=== PATIENT | female | born 1935 | race Caucasian/White ===

== ENCOUNTER 2017-02-07 18:39 | Inpatient (IN) | payer MEDICARE, BC, OTHER ==
[~2017-02-07] VITALS: Ht 147.3 cm; Wt 62.5 kg
[~2017-02-07 18:39] MED LIST: ADULT LOW DOSE81 MG PO; CLARITIN10 MG PO; CLOPIDOGREL75 MG PO; COZAAR25 MG PO; CRESTOR20 MG PO; DEXILANT60 MG PO; FOLIC ACID1 MG PO; HYDROXYZINE HCL25 MG PO; LIPITOR80 MG PO; METFORMIN HCL500 M2 PO; METOPROLOL SUCC50 MG PO; METOPROLOL TART50 MG PO; MUCINEX600 MG PO; NEURONTIN100 MG PO; NORCO 5-325 TA1 EACH PO; NORCO 7.5-3251 EACH PO; SERTRALINE HCL50 MG PO; TOPROL XL50 MG PO; TORSEMIDE20 MG PO; TYLENOL EXTRA500 MG PO; ULTRA-LIGHT RO1 EACH MISC; VITAMIN D250000 UNIT PO
[2017-02-07] MEDS ORDERED: GABAPENTIN100 MG PO (19:14)
[2017-02-07] MEDS ORDERED: HYDROXYZINE HCL25 MG PO (19:14)
--- NOTE | 2017-02-07 22:06 | EKG ---
[facility] [address] [place] [address] Signed Sinus rhythm with premature atrial complexes Left bundle branch block Abnormal ECG No previous ECGs available Confirmed by CHELSEA GARAY MD ([id number]) on 02/07/2017 10:06:19 PM Electronically Signed By: CHELSEA GARAY MD 02/07/17 2206 PATIENT NAME: MERISSA VARELA Electrocardiogram DATE OF : 31 PHYSICIAN: CHELSEA GARAY MD REPORT #: [id number] REPORT IS CONFIDENTIAL AND NOT TO BE RELEASED WITHOUT AUTHORIZATION
--- NOTE | 2017-02-07 22:25 | NUR ---
ADMIT PT AT 2120 TO CCU PER STRETCHER FROM ED. PT STATES SHE IS WEAK AT THIS TIME AND PT UNABLE TO MOVE SELF. IS SL HARD OF HEARING. FAMILY EXPRESSED CONCERN ABOUT PT'S MEDS AND THAT SHE IS SELF MEDICATING AT HOME. REQUESTING THAT STAFF GO OVER MEDS WITH PCP AND PHARMACY. INFORMED THAT PHARMACY STAFF WILL BE DOING THAT. ALSO DISCUSSED POSS NEED FOR SOMEONE TO HELP MANAGE PTS MEDS AT HOME. PT GIVEN WATER. BOLUS'S INFUSING. PT STATES SHE VOIDED AT HOME PRIOR TO COMINGIN TO HOSPITAL.
--- NOTE | 2017-02-07 23:19 | NUR ---
LAB DRAW FOR REPEAT LACTIC ACID DONE. 16F BABCOCK CATH INSERTED WITHOUT PROBLEM, RETURN CL YEL URINE. PT EATING CRACKERS AND TAKING ICE CHIPS. PT PREFERS ICE CHIPS AT THIS TIME.
--- NOTE | 2017-02-07 23:48 | NUR ---
DR GARAY CALLED RE LABS, IVF INCREASED TO 100ML/HR. PT RESTFUL.
--- NOTE | 2017-02-08 02:58 | NUR ---
PT AWAKE REQUESTING WARM WASH CLOTH TO WASH FACE.REQUESING 02 OFF 02 BURNING NOSE, CHANGED TO OXYMASK. PT DID TAKE 02 OFF WHILE WASHING FACE AND SATS DECREASED TO 84%, SATS RETURNED TO 90'S WHEN [address] GARAY CALLED RE T 101.6. ORDER RECIEVED FOR BLOOD CULTURES. LAB NOTIFIED.
--- NOTE | 2017-02-08 04:13 | NUR ---
TYLENOL GIVEN AFTER BLOOD CULTURES DRAWN PER DR GARAY'S INSTRUCTION.
--- NOTE | 2017-02-08 05:14 | NUR ---
PT STATES FEELING WARM, HELPED TO REMOVED COVERS. HELPED TO REPOSITION.
--- NOTE | 2017-02-08 08:00 | NUR ---
ASSESSMENT DONE. TALKED WITH PATIENT ABOUT PLAN OF CARE. THIS WILL NEED TO BE REINFORCED. PATIENT IS SOMEWHAT FORGETFUL. IVF/BABCOCK CATH PATENT.
--- NOTE | 2017-02-08 08:20 | NUR ---
DR. GARAY HERE TO SEE PATIENT. ORDERS RECIEVED TO BOLUS WITH REMAINING IVF THEN RATE TO 125 ML/HR.
--- NOTE | 2017-02-08 08:45 | NUR ---
BOLUS 332 ML INFUSED. IVF NOW INFUSING AT 125 ML/HR. C/O FEELING COLD. STATES SOME HOW I FEEL DIFFERENT. WARM BLANKET GIVEN.
--- NOTE | 2017-02-08 09:10 | NUR ---
TOOK BREAKFAST POOR. DENIES NAUSEA.
--- NOTE | 2017-02-08 09:10 | NUR ---
NORCO GIVEN FOR C/O MID CHEST DISCOMFORT. WARM BLANKETS GIVEN FOR COMFORT.
--- NOTE | 2017-02-08 10:30 | NUR ---
FAMILY MEMBERS ARE IN ROOM. PATIENT IS W/O C/O.
--- NOTE | 2017-02-08 12:00 | NUR ---
ASSESSMENT DONE. LUNCH ORDERED. FAMILY HERE.
--- NOTE | 2017-02-08 16:15 | NUR ---
ASSESSMENT DONE. NO CHANGES.
--- NOTE | 2017-02-08 16:30 | NUR ---
BABCOCK CATH DC'D PER ORDERS.
--- NOTE | 2017-02-08 19:01 | NUR ---
REPORT GIVEN TO NEXT SHIFT. RESTFUL
--- NOTE | 2017-02-08 20:23 | NUR ---
PT STATES SHE IS READY FOR BED. HAD PT UP TO BSC TO TRY TO VOID. PT VOIDED 10ML. STATES SHE IS "SHAKY" FROM "NERVES" AND IS HAVING DIFFICULTY RELAXING TO VOID. BLADDER SCANNED FOR 329ML. PT REPORTS SHE TAKES HYDROXIZINE FOR HER NERVES AT HOME WHEN ASKED. PT ALSO ASKING FOR LAXATIVE OR STOOL SOFTENER. DR GARAY CALLED AND ORDERS RECIEVED. WHILE UP TO COMMODE PT WAS NOT SOB BUT SATS DID DEC TO UPPER 80'S. PT REQUIRED ASSISTANCE WEAK AND TIRED. REPORTS SHE IS VERY TIRED. HS CARE DONE.
--- NOTE | 2017-02-08 23:30 | NUR ---
PT UP TO BSC TO VOID. HAS URGENCY AND STARTED TO VOID SHORTLY AFTER STANDING. WAS SOB AND HR UP TO 124. SATS DEC TO 80'S WHEN BACK TO BED 02 INCREASED TO 4 L TO HELP PT RECOVER. TEMP 100.4 PT GIVEN 500MG TYLENOL PO. PT DOES C/O FEELING COLD. COVERED WITH BLANKETS BUT NOT GIVEN ADDITIONAL WARM BLANKETS AND EXPLAINED TO PT WHY IE TEMP INCREASING. PT EXPRESSED SHE UNDERSTOOD.
--- NOTE | 2017-02-08 23:33 | NUR ---
HR NOW 98 AND 02 BACK TO 3L SATS MID 90'S.
--- NOTE | 2017-02-09 01:18 | NUR ---
PT CALLED, STATES FEELS NEED TO VOID. ALSO STATES SHE DOESN'T FEE GOOD. REQUIRED 2 PERSON ASSIST TO BSC. VOIDED CL YEL URINE. MOVES WITH DIFFICULTY BUT LESS SOB. BACK TO BED AND ASSISTED UP IN BED. CONT TO STATE SHE DOESN'T FEEL GOOD, VAGUE ABOUT SYMPTOMS BUT DOES HAVE SOME CHEST DISCOMFORT BALA WITH BREATH. T 101.2 GIV[address] GARAY CALLED RE TEMP.
--- NOTE | 2017-02-09 01:55 | NUR ---
PTR AWAKENED BY IV PUIMP. STATES IS FEELING BETTER AND IS STARTING TO SWEAT.02 OFF TO WASH FACE AND SATS DEC TO 82, O2 BACK ON, SASTS 93%.
--- NOTE | 2017-02-09 03:14 | NUR ---
IS SLEEPING. HR 98-104 HAS FREQ PAC'S. SATS 95-97%.
--- NOTE | 2017-02-09 05:15 | NUR ---
IN TO SEE PT, SHE IS AWAKE. UP TO BSC TO VOID. IS STRONGER THAN EARLIER BUT STILL REQUIRING 1 PERSON ASSIST UP AND 2 PERSON ASSIST BACKT TO BED. LESS SOB THOUGH SATS STILL DEC TO 85 WITH EXERTION. DOES RECOVER FASTER THAN EARLIER. TAKING ICE CHIPS.
--- NOTE | 2017-02-09 06:34 | NUR ---
SLEEPING AT THIS TIME.
--- NOTE | 2017-02-09 06:57 | NUR ---
UP TO BSC. STATES CHEST FEELS TIGHT. EXPLAINED THAT THAT WAS A SYMPTOM OF PNEUMONIA.
--- NOTE | 2017-02-09 08:00 | NUR ---
RESTFUL. NO DISTRESS NOTED.
--- NOTE | 2017-02-09 09:00 | NUR ---
UP TO COMMODE WITH ASSIST. UNABLE TO VOID. SPONGE BATH GIVEN. TRANSFERRED TO CHAIR.
--- NOTE | 2017-02-09 09:15 | NUR ---
DR. GARAY PHONED IN AND UPDATED ON PATIENT. IVF DC'D. ENC TO INCREASE PO INTAKE.
--- NOTE | 2017-02-09 10:03 | NUR ---
REMAINS IN CHAIR. DENIES PROBLEMS.
--- NOTE | 2017-02-09 11:18 | NUR ---
ECHO BEING DONE AT BEDSIDE.
--- NOTE | 2017-02-09 13:00 | NUR ---
REPORT TO MEDICAL FLOOR.
--- NOTE | 2017-02-09 13:15 | NUR ---
IS SOMEWHAT ANXIOUS, VISTERIL 25 MG PO GIVEN.
--- NOTE | 2017-02-09 13:29 | NUR ---
PT SITTING IN CHAIR EATING BREAKFAST. SHE IS BY NATURE QUIET, SOMEWHAT SLOW TO RESPOND AND A LITTLE NEGATIVE. SHE RECOGNIZED ME, SEEMED TO PERK UP SOME AND WE HAD A PLEASANT CONVERSATION. SHE MISSES HER CATS, CONCERNED ABOUT THEIR WELL BEING. REQUESTED PRAYER, WILL CONTINUE TO FOLLOW
--- NOTE | 2017-02-09 13:30 | NUR ---
BREONNA PATRICK HERE TO TAKE WITH PATIENT ABOUT HOME MEDICATIONS.
--- NOTE | 2017-02-09 14:20 | NUR ---
PT TRANSFERED FROM CCU TO ROOM 108 VIA RECLINER, ACCOMPANIED BY DAUGHTER AND OTILIO PAT. PT AWAKE, ALERT, ORIENTED X 4. PT ON 3L O2 VIA NC, OXYGEN SATURATION 90%.
--- NOTE | 2017-02-09 14:37 | NUR ---
PT C/O NAUSEA, GAVE ZOFRAN 4 MG IV PRN. PT DENIED OTHER NEEDS.
--- NOTE | 2017-02-09 14:47 | NUR ---
NURSE IN ROOM
--- NOTE | 2017-02-09 14:54 | NUR ---
PT TRANSFERED FROM RECLINER TO BED WITH FWW WITH 2 PERSON ASSIST. STAND PIVOT TRANSFER. PT DESATURATED FROM 90% TO 82%. ONCE IN BED, PT ENCOUARGED TO TAKE DEEP BREATHS IN THROUGH NOSE, OUT MOUTH, AND PT'S OXYGEN SATURATION LEVEL INCREASED TO 90% AFTER APROXIMATELY [address] GARAY OF ABOVE NOTED, AND THAT THIS RN PLACED PT ON CONTINOUS PULSE OXIMETERY. RECIEVED VORB FOR CONTINUOUS PULSE OX FOR THIS PT.
--- NOTE | 2017-02-09 18:39 | NUR ---
PT IN BED, AWAKE, DROWSY. PROVIDED PT WITH WARM WATER PER HER REQUEST. PT DID NOT WANT DINNER, REFUSED ALL OFFERED FOODS, STATED THAT HER DAUGHTER WILL BRING IN SOME SPLIT PEA SOUP LATER. ENCOURAGED PT TO DRINK MORE FLUIDS. PT STATED THAT SHE WILL TRY.
--- NOTE | 2017-02-09 18:49 | NUR ---
PT TRANSFERED FROM CCU TO FLOOR, TO ROOM 108 THIS AFTERNOON. PT'S OXYGEN SATURATION LEVEL DROPS TO LOW 80s ON 3L O2 VIA NC WITH ANY TRANSFER, AND PT TAKES 2-3 MINUTES TO RECOVER AFTER TRANSFERS. HAS CONTINOUS PULSE OX ON. PT USED INSENTIVE SPIROMETER AND ACAPELLA APROPRIATELY. IS A 2 PERSON ASSIST TRANSFER WITH PERSONAL WALKER. PT HAS VERY POOR APETITE, REFUSED DINNER, REFUSED ENSURE, REFUSED ANY OTHER PO INTAKE, EXCEPT SIPS OF WATER.
--- NOTE | 2017-02-09 20:46 | NUR ---
PT UP TO BSC,
--- NOTE | 2017-02-09 21:48 | NUR ---
MEDICATED WITH ZOFRAN,. C/O UPSET STOMACH
--- NOTE | 2017-02-09 23:01 | NUR ---
PT UP TO BSC WITH 2 PERSON ASSIST. O2 DESATS PREVIOUSLY NOTED BY THIS RN. VOIDED, BACK TO BED. TOTAL AMOUNT OF TIME SPENT WITH PT AT THIS TIME WAS 25 MINUTES TO HELP DECREASE PTS ANXIETY. EFFECTIVE
--- NOTE | 2017-02-09 23:45 | NUR ---
2 PERSON ASSISTED PATIENT TO USE THE COMMODE. USED OXIMASK IN 10 LITER WHEN UP AND 4 LITER IN NASAL CANNULA WHEN IN BED.
--- NOTE | 2017-02-10 01:37 | NUR ---
Pt up to bsc. voided. Requires 2 person assist. O2 desats just as before. Current O2 3L/nc after getting in bed. denies SOB. sats 93%, p89, r22 at this time. Time spent inroom with pt 20 minutes, to help pt decrease anxiety when up. tolerated well,
--- NOTE | 2017-02-10 01:41 | NUR ---
t 99.7, CDB and IS done. Covers removed. will recheck temp in 1hr.
--- NOTE | 2017-02-10 03:43 | NUR ---
Resting, no c/o pain. O2 in place
--- NOTE | 2017-02-10 04:32 | NUR ---
Pt up to BSC, 2 assist, voided. O2 3L/NC, when moving, sats dropped to 86%, P117, R24. moist productive cough of creamy colored phlegm present. O2 up to 5L N/C, when up. Sats up to 95%. Pt did very well pivoting and walking 6 steps to bed. Sat on edge of ed ofr about 10 minutes, moist productive cough still present, denies SOB. O2 dropped to 3.5L, sats up to 90-92% while sitting. Tolerated very well. Medicated with 1 [place] for mild c/o back pain, temp 99.1. Tolerating small sips of lukewrm water. Pt had a 99.8 fever earlier, CDB and IS use done, multiple covers removed. Temp rechecked 1H later and it dropped to 98.8. CDB, IS, Acapella used, effectively. Pt back to bed, Coop with assessment. Improving lung sounds, stamina and decreased anxiety noted. Encouraged and praised for improvements. Tolerated very well. Comfortable. Spent 31 minutes in room with pt.
--- NOTE | 2017-02-10 07:25 | NUR ---
RECIEVED BEDSIDE REPORT FROM OTILIO TUCKER. PT AWAKE, IN BED. IS ON 3L O2 VIA NC, OXYGEN SATURATION LEVEL 95%.
--- NOTE | 2017-02-10 07:51 | NUR ---
PATIENT IN BED. ROOM TIDIED, WHITEBOARD UPDATED. PATIENT WANTS BEDBATH TODAY, WILL PERFORM BEDBATH AND AM CARE AFTER BREAKFAST.
--- NOTE | 2017-02-10 08:58 | NUR ---
PT ASSISTED FROM BED TO BEDSIDE COMMODE. OXYGEN LEVEL DECREASED TO 89%, SO INCREASED OXYGEN TO 5L VIA NC, PT'S OXYGEN LEVEL INCREASED TO 93% AFTER APROXIMATELY 30 SECONDS. DECREASED OXYGEN TO 3L, PT'S OXYGEN SATURATION LEVEL 92%.
--- NOTE | 2017-02-10 09:42 | NUR ---
PT SITTING UP IN RECLINER, COUGHING, BRINGING UP SMALL AMOUNTS OF CREAM/BEIGE COLORED THICK SPUTUM. OXYGEN SATURATION LEVEL DROPPED TO 88% ON 3L VIA NC, INCREASED O2 TO 3.5L VIA NCE, OXYGEN SATURATION LEVEL UP TO 90%. PT TOOK SCHEDULED AM MEDICATIONS, EDUCATION PROVIDED TO PT REGARDING INDICATION FOR MEDICATIONS TAKEN, WELL POTENTIAL SIDE EFFECTS R/T MEDICATIONS TO WATCH FOR. PT VERBALIZED UNDERSTANDING.
--- NOTE | 2017-02-10 12:10 | NUR ---
NURSE IN ROOM.
--- NOTE | 2017-02-10 12:10 | NUR ---
PT GIVEN PAPER AND PEN, WITH CLIPBOARD. PT IS GOING TO WRITE A LIST OF HER CHILDRENS' NAMES, AND PT'S MAIDEN NAME FOR CONFIRMATION. PT STATED THAT SHE IS OK WITH ANY AND ALL MEDICAL INFORMATION BEING RELEASED TO HER CHILDREN, OVER THE PHONE AND IN PERSON. 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
--- NOTE | 2017-02-10 13:30 | NUR ---
SPOKE WITH PATIENT AND SON IN ROOM. SHE STATES SHE DOES NOT WANT TO GO TO A FACILITY IF POSSIBLE. WOULD LIKE TO RETURN HOME. STATES SHE RECENTLY LET HER CAREGIVER GO "DUE TO WE AGREE TO DISAGREE". SON STATES THEY WILL TRY TO HELP HER AT HOME IF POSSIBLE. PATIENT STATES SHE HAS 14 CHILDREN. SOME LIVE IN THE AREA. SHE WILL TALK WITH THEM TONIGHT.
--- NOTE | 2017-02-10 14:40 | NUR ---
PT IN BED, AWAKE, ALERT, GIVING ALVARO, MEAT COUNTER CLERK HER DINNER ORDER. PT IS 93% ON 3L O2 VIA NC.
--- NOTE | 2017-02-10 16:44 | NUR ---
PT REMAINED ON 3L O2 VIA NC WHEN AT REST TO MAINTAIN OXYGEN SATURATION LEVEL AT 90% OR GREATER. WITH ANY ACTIVITY, PT REQUIRED OXYGEN TO BE INCREASED TO 5L VIA NC TO MAINTAIN OXYGEN SATURATION LEVEL AT OR GREATER THAN 90%. PT WORKED WITH PHYSICAL THERAPY THIS AFTERNOON, AND PER THERAPIST REPORT, PT DESATURATED TO HIGH 70% WITH ACTIVITY, AND TOOK SEVERAL MINUTES TO RECOVER TO 90% AT REST. ONCE PT RECOVERED TO 90%, WAS ABLE TO WEAN BACK TO 3L, AND PT HAS MAINTAINED SAT 90% OR GREATER. APETITE POOR, SLIGHTLY BETTER THAN YESTERDAY. REFUSED ENSURE SUPLEMENTS. URINE OUTPUT QUANTITY SUFFICIENT. LUNGS COARSE, WITH WHEEZES. PT HAS PRODUCTIVE COUGH. UP WITH WALKER WITH 2 PERSON ASSIST. WAS UP IN RECLINER MUCH OF SHIFT. IS SALINE LOCKED. ALERT, ORIENTED X 4.
--- NOTE | 2017-02-10 17:17 | NUR ---
DR. GARAY NOTIFIED VIA TELEPHONE THAT DURING THERAPY THIS AFTERNOON, PER FRANCESCO, COST AND RISK ANALYSIS MANAGER, PT'S OXYGEN SATURATION LEVEL DROPPED TO 79% WITH TRANSFER/AMBULATION IN ROOM. PER FRANCESCO, PT'S OXYGEN SATURATION LEVEL SLOWLY, OVER SEVERAL MINUTES, INCREASED TO 90% OR GREATER ONCE PT'S OXYGEN WAS INCREASED TO 5L. THIS RN ASSESSED PT, PT'S OXYGEN SATURATION LEVEL WAS 94% AT REST ON 5L VIA NC, TITRATED TO 3L VIA NC, AND PT'S OXYGEN SATURATION LEVEL HAS REMAINED AT 90% OR GREATER.
--- NOTE | 2017-02-10 17:35 | NUR ---
PATIENT RESTING IN BED WITH EYES CLOSED.
--- NOTE | 2017-02-10 18:34 | NUR ---
PT UP TO BEDSIDE COMMODE WITH FWW WITH 2 PERSON ASSIST. OXYGEN INCREASED TO 5L VIA NC PRIOR TO TRANSFER, OXYGEN SATURATION LEVEL REMAINS ABOVE 90%. PRODUCTIVE COUGH.
--- NOTE | 2017-02-10 18:44 | NUR ---
PT HAD A LARGE FORMED BM, AND VOIDED LARGE AMOUNT OF URINE. ASSISTED TO CLEAN UP, THEN TRANSFERED TO RECLINER, TOOK APROXIMATELY 3 STEPS. IS SITTING UP IN RECLINER, SIPPING CHICKEN BROTH. DECLINED ANY FURTHER FOOD AT THIS TIME.
--- NOTE | 2017-02-10 18:45 | NUR ---
PT BACK TO 3L O2 VIA NC, SAT 90% AT REST.
--- NOTE | 2017-02-10 19:25 | NUR ---
RECEIVED REPORT FROM RN. PATIENT IS SITTINGI N CHAIR TALKING WITH FAMILY. DENIES NEEDS AT THIS TIME. CALL LIGHT WITHIN REACH.
--- NOTE | 2017-02-10 21:32 | NUR ---
PATIENT IS RESTING COMFORTABLY IN CHAIR. USING 2PA/FWW, PATIENT HELPED TO COMODE. GAGANDEEP CARE PERFORMED. DENIES OTHER NEEDS AT THIS TIME, ASSESSMENT DONE. CALL LIGHT WITHIN REACH.
--- NOTE | 2017-02-10 22:42 | NUR ---
INFORMED DR. GARAY OF INADEQUATE URINE OUTPUT BETWEEN 1800 AND 2200. NO NEW ORDERS AT THIS TIME.
--- NOTE | 2017-02-11 00:12 | NUR ---
PATIENT RESTING COMFORTABLY IN BED, BREATHING IS EVEN AND UNLABORED ON 3L O2 VIA NC. O2 SATURATION IS 94%, PULSE IS 83. PATIENT DENIES PAIN. NO NEEDS AT THIS TIME. CALL LIGHT WITHIN REACH.
--- NOTE | 2017-02-11 01:17 | NUR ---
PATIENT IS RESTING COMFORTABLY IN BED, BREATHING IS EVEN AND UNLABORED ON 3L O2 VIA NC. O2 SAT IS 91%, PULSE IS 90. CALL LIGHT WITHIN REACH.
--- NOTE | 2017-02-11 02:13 | NUR ---
PATIENT HELPED TO COMODE WITH 2PA. SHE IS TOLERATING ACTIVITY, BUT REMAINS WEAK. PATIENT CONTINUES TO DESATURATE TO HIGH 80s DURING AMBULATION. ONCE RESTING, O2 RECOVERS TO 90s ON 3L O2. NO OTHER NEEDS AT THIS. CALL LIGHT WITHIN REACH.
--- NOTE | 2017-02-11 03:45 | NUR ---
PATIENT UP TO COMODE WITH 2PA/NON-SLIP SOCKS. CONTINUES TO DESAT DURING AMBULATION. NOW RESTING COMFORTABLY IN BED, BREATHING IS EVEN AND UNLABORED. O2 SAT IS 92% ON 3L O2. NO NEEDS AT THIS TIME. CALL LIGHT WITHIN REACH.
--- NOTE | 2017-02-11 05:32 | NUR ---
PATIENT'S NIGHT WAS UNEVENTFUL. SHE HAS BEEN RESTING COMFORTABLY IN BED THROUGHOUT SHIFT. VSS, NO COMPLAINTS OF PAIN. REQUIRES 3L 02 VIA NC TO MAINTAIN SATURATION IN THE 90s. PATIENT IS A 2PA/FWW AND IS SALINE LOCKED. NO ACUTE CHANGES FROM BEGINNING OF SHIFT ASSESSMENT.
--- NOTE | 2017-02-11 05:54 | NUR ---
PATIENT RESTING COMFORTABLY IN BED, BREATHING IS EVEN AND UNLABORED. O2 SAT IS 95% ON 3L O2, PULSE IS 90. CALL LIGHT WITHIN REACH.
--- NOTE | 2017-02-11 06:56 | NUR ---
PATIENT STATES "I CAN'T RELAX. I FEEL TENSE." PRN HYDROXIZINE GIVEN PER EMAR. NO OTHER NEEDS AT THIS TIME. CALL LIGHT WITHIN REACH.
--- NOTE | 2017-02-11 07:10 | NUR ---
CHECK ON PT-HER SON ABBI WAS IN VISITING. HE MENTIONED THAT HE WANTED TO VISIT WITH ROGELIO-I MENTIONED TO RN. SHE WILL LEAVE MSG WITH ROGELIO. I LET THEM VISIT. EXTENDED A BLESSING, WILL FOLLOW NEEDED
--- NOTE | 2017-02-11 07:10 | NUR ---
BEDSIDE HANDOFF REPORT RECEIVED FROM TELECOMMUNICATIONS SUPPORT RN. PT ASSISTED TO CHAIR FROM BEDSIDE COMMODE. PT DENIES NEEDS AT THIS TIME.
--- NOTE | 2017-02-11 08:15 | NUR ---
PT SITTING IN CHAIR. PT DENIES PAIN. DENIES SOB. COMPLAINT OF RIB PAIN AT TIMES WHEN COUGHING. PT LUNG SOUNDS COARSE WITH CRACKLES TO BASES, ON 3L NC, O2 SATS 96%, DESATS QUICKLY WITHOUT OXYGEN. PT COMPLAINT OF NAUSEA AFTER EATING BREAKFAST. PT BOWEL TONES ACTIVE. PT WITH GENERALIZED NON-PITTING EDEMA TO BLE. PT VOIDING IN BSC, UP WITH 1-2 PA. PT DENIES OTHER NEEDS AT THIS TIME.
--- NOTE | 2017-02-11 08:30 | NUR ---
PT COMPLAINT OF NAUSEA. GIVEN 4 MG IV ZOFRAN. PT SITTING IN CHAIR. DENIES OTHER NEEDS AT THIS TIME.
--- NOTE | 2017-02-11 09:04 | NUR ---
Patient is sitting in chair. Offered patient a bath or shower and patient refused, patient states she had one yesterday. Patient complained of her nose bothering her from the oxygen. Added humidification to her oxygen flow and Laxmi okayed it. No other requests at this time.
--- NOTE | 2017-02-11 09:30 | NUR ---
SPOKE WITH SON ABBI. HE STATES UNDERSTANDING THAT PATIENT IS VERY WEAK AND WOULD BE A SAFETY RISK TO RETURN HOME WITHOUT SOME REHAB. DISCUSSED POSSIBLE TRANSITIONAL CARE REHAB HERE. HE WOULD PREFER THAT IF POSSIBLE. STATES HE IS ON HIS WAY INTO FACILITY, WE AGREE TO MEET WITH DR GARAY IN ROOM.
--- NOTE | 2017-02-11 09:56 | NUR ---
PT ASSISTED BACK TO BED FROM BSC, PROVIDED WITH WARM BLANKET. PT DENIES DIZZINESS.
--- NOTE | 2017-02-11 10:08 | NUR ---
Francia-Student Nurse in room to assist patient to bedside commode at this time. No other requests by pt.
--- NOTE | 2017-02-11 11:30 | NUR ---
MET WITH PATIENT AND SON ABBI, AND DR GARAY IN ROOM. DISCUSSED HER NEED FOR REHAB FOR STRENGTHENING. PATIENT WOULD LIKE TO STAY FOR TRANSITIONAL BED REHAB. WE DISCUSSED AT DISCHARGE SHE MAY NEED HOME HEALTH FOLLOW UP OR OUTPATIENT FOLLOW UP. THEY STATE UNDERSTANDING. SON STATES HE CALLED HER POLISHER APPRENTICE AT [facility] TO DISCUSS FINDING NEW CAREGIVER SOON POSSIBLE.
--- NOTE | 2017-02-11 11:30 | NUR ---
MD TO BEDSIDE TO EVALUATE PT. PLAN TO TRANSITION TO SWING BED, CONTNINUE WITH ABX. ENCOURAGED, ACCAPELLA AND I/S. PT ON 3L NC O2 SATS 93%.
== END 2017-02-11 11:25 | disposition swing bed (61) | DRG 871 ==
LOC: ED 18:39 → CCU 20:59 → MS 02-09 14:00
PROVIDERS: ADMIT Internal Medicine
DX: A41.9 Sepsis, unspecified organism (principal); J96.01 Acute respiratory failure with hypoxia; J13 Pneumonia due to Streptococcus pneumoniae; I50.22 Chronic systolic (congestive) heart failure; R65.20 Severe sepsis without septic shock; I11.0 Hypertensive heart disease with heart failure; I25.10 Atherosclerotic heart disease of native coronary artery without angina pectoris; K21.9 Gastro-esophageal reflux disease without esophagitis; E11.9 Type 2 diabetes mellitus without complications; F41.9 Anxiety disorder, unspecified; E78.5 Hyperlipidemia, unspecified
CPT/HCPCS: 36415; 51702; 71020; 80053; 83605; 83880; 84484; 85025; 87040; 87449; 87899; 93005; 93010; 93306; 94668; 94760; 94762; 97116; 97162; 97530; J0696; J1650; J1956; J2405; J7030; J7120; Q0177

== ENCOUNTER 2017-02-11 11:25 | Inpatient (IN) | payer MEDICARE, BC, OTHER ==
[~2017-02-11] VITALS: Ht 147.3 cm; Wt 62.5 kg
[~2017-02-11 11:25] MED LIST changes: +GABAPENTIN100 MG PO
--- NOTE | 2017-02-11 12:02 | NUR ---
pt sittin up in chair visiting with her family in the room. lunch tray given at this time. no other requests from pt.
--- NOTE | 2017-02-11 14:15 | NUR ---
PT ASSISTED TO CHAIR FROM BEDSIDE COMMODE. PT LUNG SOUNDS COARSE WITH FINE CRACKLES TO BASES, ON CONTINUOUS PUSLE OX, 93% ON 3L. PT DENIES PAIN. PT DENIES NAUSEA AT THIS TIME, TOLERATIGN ADA DIET. PT UP WITH ASSISTANCE X1. PT DENIES NEEDS AT THIS TIME.
--- NOTE | 2017-02-11 16:07 | NUR ---
Per Dr Lindo, keep levofloxacin dose at 500mg daily rather than renal dose of 250mg daily
--- NOTE | 2017-02-11 18:03 | NUR ---
PT TRANSITIONED TO SWING BED. PT ON 3L NC, CONTINUOUS PULSE OX, DESATS QUICKLY WITHOUT OXYGEN. PT TOLERATING ADA DIET, ZOFRAN GIVEN THIS AM FOR NAUSEA, POOR APPETITE. PT UP WITH 1PA WITH FWW, STRENGTH IMPROVING. LUNG SOUNDS WITH FINE CRACKLES, PRODUCTIVE COUGH. PT VOIDING QS, HAD BM TODAY.
--- NOTE | 2017-02-11 18:40 | NUR ---
PT CALLED REQUESTING UPDATE. DISCUSSED PT ACTIVITIES FOR THE DAY. FAMILY CONCERNED ABOUT PT BEING UP IN CHAIR FOR AN EXTENDED PERIOD TODAY, EDUCATED ON NEED FRO PT TO BE OUT OF BED FOR LUNG HYGEINE, VERBALIZED UNDERSTANDING, DISCUSSED THAT PT STRENGTH INCREASING, PT IS REQUIRING LESS ASSISTANCE, REVIEWED MEDICATIONS. DISCUSSED WITH PT. PT RESTING IN BED. DENIES NEEDS AT THIS TIME.
--- NOTE | 2017-02-11 19:05 | NUR ---
received report from rn. patient is resting comfortably in bed, breathing is even and unlabored. O2 saturation is 94% on 3L O2 via NC. patient has no needs at this time. call light within reach.
--- NOTE | 2017-02-11 20:25 | NUR ---
PATIENT IN BED. ICE WATER REFILLED. PATIENT DOES NOT NEED ANYTHING ELSE AT THIS TIME.
--- NOTE | 2017-02-11 20:30 | NUR ---
PATIENT'S ATTENDS CHANGED, GAGANDEEP CARE PERFORMED. APPLIED BARRIER CREAM TO BUTTOCKS AND COCCYX. PATIENT TOLERATED CARE WELL. NOW RESTING COMFORTABLY IN BED, BREATHING EVEN AND UNLABORED ON 2L 02 VIA NC. DENIES FURTHER NEEDS AT THIS TIME. CALL LIGHT WITHIN REACH.
--- NOTE | 2017-02-11 21:47 | NUR ---
PATIENT IS RESTING COMFORTABLY IN BED, BREATHING IS EVEN AND UNLABORED. O2 SATURATION IS 92% ON 3L O2 VIA NC. ASSISTED TO COMODE WITH 1PA/NON-SLIP SOCKS. PATIENT MAINTAINED SATURATIONS ABOVE 90% DURING AMBULATION AND HAD NO SOB. SHE IS NOW RESTING COMFORTABLY IN BED. PATIENT DOES NOT HAVE ANY FURTHER NEEDS. CALL LIGHT WITHIN REACH.
--- NOTE | 2017-02-11 22:00 | NUR ---
DURING SCHEDULED MEDICATION ADMIN, PATIENT REPORTS THAT SHE IS FEELING ANXIOUS. PRN HYDROXYZINE GIVEN PER EMAR. PATIENT DENIES OTHER NEEDS. CALL LIGHT WITHIN REACH.
--- NOTE | 2017-02-11 23:38 | NUR ---
WRAPPED TWO WARM BLANKETS AROUND PATIENT'S LEGS BECAUSE SHE WAS COLD. OTHERWISE, SHE FEELS SHE DOESN'T NEED ANYTHING ELSE CURRENTLY.
--- NOTE | 2017-02-12 00:16 | NUR ---
PATIENT DOING WELL, DOES NOT NEED ANYTHING ELSE AT THIS TIME.
--- NOTE | 2017-02-12 02:08 | NUR ---
NURSE IN ROOM.
--- NOTE | 2017-02-12 02:16 | NUR ---
PATIENT TAKEN TO [facility] WITH 1PA/NON-SLIP SOCKS. SATS DROPPED TO 84% ON 3L O2 WHILE AMBULATING, TITRATED O2 UP TO 5L AND PATIENTS SATS REMAINED ABOVE 92%. PATIENT IS NOW RESTING COMFORTABLY IN CHAIR. SHE STATED "I JUST NEEDED TO GET OUT OF THAT BED." NO FURTHER NEEDS AT THIS TIME. CALL LIGHT WITHIN REACH.
--- NOTE | 2017-02-12 04:23 | NUR ---
PATIENT DOING FINE, ASLEEP. DOES NOT NEED ANYTHING AT THIS TIME.
--- NOTE | 2017-02-12 04:41 | NUR ---
PATIENT'S NIGHT WAS UNEVENTFUL. SHE HAS BEEN RESTING COMFORTABLY IN BED THROUGHOUT SHIFT VSS, NO COMPLAINTS OF PAIN. PATIENT CONTINUES TO DESATURATE DURING AMBULATION WHILE ON 3L O2, BUT SATS ARE ABOVE 92% WHILE ON 5L DURING AMBULATION. NO COMPLAINTS OF NAUSEA THIS SHIFT. [facility] [place] [facility] [place] [facility]. NO ACUTE CHANGES FROM BEGINNING OF SHIFT ASSESSMENT.
--- NOTE | 2017-02-12 05:03 | NUR ---
PATIENT IS RESTING COMFORTABLY. BREATHING IS EVEN AND UNLABORED. O2 SAT IS 98% ON 3L O2, PULSE IS 82. CALL LIGHT WITHIN REACH.
--- NOTE | 2017-02-12 05:26 | NUR ---
PATIENT'S O2 TITRATED TO 2L O2 DUE TO O2 SAT OF 96%. CALL LIGHT WITHIN REACH, PATIENT RESTING COMFORTABLY.
--- NOTE | 2017-02-12 05:46 | NUR ---
O2 TITRATED TO 1L VIA O2 FOR SAT OF 94%. WILL CONTINUE TO MONITOR.
--- NOTE | 2017-02-12 06:18 | NUR ---
PATIENT'S O2 IS 88% ON 1L O2, TITRATED UP TO 2L 02. O2 IS NOW 92%. PATIENT DENIES NEEDS THIS TIME. CALL LIGHT WITHIN REACH.
--- NOTE | 2017-02-12 07:20 | NUR ---
BEDSIDE HANDOFF REPORT RECEIVED FROM [employer]ISHER RN. PT SITTING IN CHAIR. PT DENIES NEEDS AT THIS TIME.
--- NOTE | 2017-02-12 08:00 | NUR ---
PT SITTING IN CHAIR. PT DENIES PAIN. PT DENIES SOB, STATES BREATHING IS A BIT EASIER TODAY. O2 SATS 94% ON 2L NC, CONTINUOUS PULSE OX IN PLACE, LUNG SOUNDS CLEAR UPPER CRACKLES TO BASES. PT DENIES NAUSEA, INCREASED APPETITE THIS AM, EATING REGULAR DIET, BOWEL TONES ACTIVE. PT WITH GENERALIZED EDEMA TO BLE, NON PITTING, PULSES PALPABLE. DISCUSSED PLAN OF CARE FOR THE DAY, PT REQUESTING BED BATH WHEN DAUGHTER ARRIVES. PT DENIES OTHER NEEDS AT THIS TIME.
--- NOTE | 2017-02-12 10:01 | NUR ---
NOTIFIED BY OCCUPTIONAL THERAPY THAT PT DESATS WITH ACTIVITY AND DOES NOT RECOVER QUICKLY. O2 INCREASED TO 2.5 L NC, O2 SATS 92%. FAMILY AT BEDSIDE.
--- NOTE | 2017-02-12 13:16 | NUR ---
PT O2 SATS 96% ON 2L NC, WEANED TO 1.5L, WILL CONTINUE TO MONITOR, CONTINUOUS PULSE OX IN PLACE.
--- NOTE | 2017-02-12 13:30 | NUR ---
PT SITTING IN CHAIR. PT DENIES NEEDS AT THIS TIME. EATING LUNCH. FAMILY AT BEDSIDE.
--- NOTE | 2017-02-12 13:42 | NUR ---
PT IN WITH VISITOR. INVOLVED WITH THEIR VISIT. WILL CHECK BACK LATER.
--- NOTE | 2017-02-12 15:06 | NUR ---
PT IS SITTING UP IN CHAIR WITH CALL LIGHT IN REACH. PT ASKED FOR MORE WATER
--- NOTE | 2017-02-12 18:00 | NUR ---
PT IS SITTING UP IN CHAIR WITH CALL LIGHT IN REACH, VISITING WITH FAMILY. PT ASKED FOR DINNER TRAY TO BE TAKEN AWAY.
--- NOTE | 2017-02-12 18:03 | NUR ---
PT HAD UNEVENTFUL DAY. PT ON 2L NC, DESATS WITH ACTIVITY, CONTINUOUS PULSE OX IN PLACE, ATTEMPTED TO WEAN DID NOT TOLERATE. PT ON CARDIAC DIET, APPETITE SLIGHTLY IMPROVED. PT UP WITH 1PA TO BATHROOM, STRENGTH IMPROVED. PT VOIDING QS. NO IV ACCESS.
--- NOTE | 2017-02-12 18:32 | NUR ---
Assisted pt using FWW from bathroom to chair. Stand by assist only. Pt comfortable in chair, call light in reach. Pt denies any further needs.
--- NOTE | 2017-02-12 19:28 | NUR ---
RECEIVED REPORT FROM RN. PATIENT IS RESTING COMFORTABLY IN CHAIR. DENIES NEEDS AT THIS TIME. CALL LIGHT WITHIN REACH, FAMILY AT BEDSIDE.
--- NOTE | 2017-02-12 21:45 | NUR ---
ROUNDED CHARGE. PATIENT IS RESTING IN CHAIR WATCHING TV. PATIENT DENIES ANY CONCERNS, REQUESTS OR QUESTIONS AT THIS TIME. CALL LIGHT IN REACH.
--- NOTE | 2017-02-12 22:45 | NUR ---
PATIENT RESTING COMFORTABLY IN BED, BREATHING IS EVEN AND UNLABORED. O2 SAT IS 94% ON 1L O2 VIA NC. ASSESSMENT DONE, MEDICATIONS GIVEN. PATIENT GIVEN WARM BLANKET PER REQUEST. NO OTHER NEEDS AT THIS TIME. CALL LIGHT WITHIN REACH.
--- NOTE | 2017-02-13 02:31 | NUR ---
PATIENT IS RESTING COMFORTABLY IN BED, BREATHING IS EVEN AND UNLABORED. O2 SAT IS 92% ON 1L O2 VIA NC, PULSE IS 77. CALL LIGHT WITHIN REACH.
--- NOTE | 2017-02-13 04:17 | NUR ---
UPDATED DR. GARAY REGARDING PATIENT'S OUTPUT OF 150 ML DURING THIS SHIFT, BUT HAD 800 ML OUTPUT AT 1800. NO NEW ORDERS AT THIS TIME.
--- NOTE | 2017-02-13 05:50 | NUR ---
PATIENT'S NIGHT WAS UNEVENTFUL. SHE HAS BEEN RESTING COMFORTABLY IN BED THROUGHOUT SHIFT. VSS, NO COMPLAINTS OF PAIN. SHE WEARS 1L O2, HAS NO IV ACCESS, AND IS A 1PA/FWW TO BATHROOM. NO ACUTE CHANGES FROM BEGINNING OF SHIFT ASSESSMENT.
--- NOTE | 2017-02-13 05:59 | NUR ---
PATIENT RESTING COMFORTABLY IN BED, BREATHING IS EVEN AND UNLABORED. O2 SAT IS 94% ON RA, PULSE IS 82. CALL LIGHT WITHIN REACH.
--- NOTE | 2017-02-13 09:47 | NUR ---
PATIENT AMBULATED IN HALLS WITH PHYSICAL THERAPY, APPEARED TO TOLERATE WELL. MINIMAL SOB. THEN PATIENT TO BATHROOM FOR SHOWER WITH OT, REPORTED TO THIS NURSE PULSE HIGH. PALPATED PULSE 124, OT REPORTED SEEING ON MONITOR PULSE AT 200 FOR A FEW MINUTES AND AT THAT TIME PATIENT REPORTED FEELING A HEAVY ACHE IN CHEST AND UPPER ABDOMEN. REPORTED FINDINGS TO DR. GARAY, AND ADMINISTERED ALL MORNING MEDICATIONS. BP 121/78 AND PULSE AFTER BACK TO RECLINER AND RESTING NOW 110. PATIENT IS TAKING DEEP BREATHS, 02 SATURATION 88% 3L NC
--- NOTE | 2017-02-13 11:18 | NUR ---
PT SITTING IN CHAIR, BRUSHING HAIR. SHE IS ALERT AND MORE ORIENTED. SHE MENTIONED SHE HAS HAD P.T. THIS MORNING. THEN TRIED TO TAKE A SHOWER, BUT COULDN'T BREATH SO HAD TO TAKE A BREAK. MAY BE DC'D THURSDAY, FAMILY IN CONSTANTLY TAKING GOOD CARE OF MOM. HER SON CLA MENTIONED THAT HE IS VERY CONCERNED ABOUT HER LIVING ALONE IN HER HOUSE. WOULD LIKE TO SEE HER CONSIDER ASSISTED LIVING. HE MENTIONED SHE WON'T EVEN DISCUSS IT WITH HIM. WILL SEE HOW I DO. REQUESTED PRAYER. WILL CONTINUE TO FOLLOW
--- NOTE | 2017-02-13 19:00 | NUR ---
SHIFT REPORT RECIEVED. PATIENT RESTING IN RECLINER. DENIES NEEDS AT THIS TIME. CALL LIGHT IN REACH.
--- NOTE | 2017-02-13 20:00 | NUR ---
EVENING MEDS GIVEN PER ORDER. PATIENT ASSESSMENT COMPLETE. PATIENT IN RECLINER. AAOX3. PULSE OX 96% ON 1L NC. LUNG SOUNDS COARSE THROUGHOUT WITH INSPIRTORY WHEEZE IN UPPER LOBES BILATERALLY. ENCOURAGED IS AND ACAPELLA. PATIENT TOLERATING ADA DIET. ABD SOFT AND NONTENDER, BOWEL SOUNDS ACTIVE. GENERALIZED NONPITTING EDEMA NOTED IN YI LOWER EXTREMITIES. PATIENT AMBULATES WITH SBA W/FWW. DENIES NEEDS AT THIS TIME. CALL LIGHT IN REACH.
--- NOTE | 2017-02-13 21:40 | NUR ---
ROUNDED ON PATIENT. PATIENT IS WATCHING TV. PATIENT HAS NO COMMENTS, QUESTIONS OR CONCERNS. CALL LIGHT IN REACH.
--- NOTE | 2017-02-13 23:00 | NUR ---
TECHNICAL SOLUTIONS ENGINEER ASSISTED PATIENT TO BATHROOM AND INTO BED.
--- NOTE | 2017-02-14 01:01 | NUR ---
ASSISTED PATIENT TO THE BATHROOM. SBA W/FWW, PATIENT APPEARS STEADY ON HER FEET. USES WALKER APPROPRIATELY. PATIENT 84% ON 1L NC WHEN RETURNED TO BED. SAT IMPROVED TO 91% AFTER 2MINS ON THE 1L NC. PATIENT DENIES FURTHER NEEDS. CALL LIGHT IN REACH.
--- NOTE | 2017-02-14 03:12 | NUR ---
PATIENT RESTING IN BED. O2 94% ON 1L NC. CALL LIGHT IN REACH.
--- NOTE | 2017-02-14 04:00 | NUR ---
PATIENT REQUESTED PRN ANXIETY MEDS, WHICH WERE GIVEN TO HER. ASSISTED PATIENT TO THE BATHROOM. TITRATED O2 TO 2L NC TO MAINTAIN SAT >88% PRIOR TO AND DURING AMBULATION. UPON RETURNING TO BED THE PATIENT FELT FATIGUED AND O2 SAT WAS 86% WITH 2L NC. NC TUBING REACHED INTO BATHROOM, PATIENT NOT REMOVED FROM O2 FOR AMBULATION. PATIENT HAS A PRODUCTIVE COUGH WITH THIN CLEAR SPUTUM. PATIENT BACK IN BED WITH CALL LIGHT IN REACH.
--- NOTE | 2017-02-14 05:22 | NUR ---
PATIENT RESTED WELL THROGUHOUT SHIFT. UP TO THE BATHROOM WITH SBA W/FWW. PATIENT O2 WAS TIRTATED UP TO 2L TO MAINTAIN O2 >88%. OUTPUT QS. NO PAIN OR NAUSEA REPORTED. PRODUCTIVE COUGH NOTED. PATIENT AAOX3.
--- NOTE | 2017-02-14 06:19 | NUR ---
PATIENT RESTING IN BED. EYES CLOSED. RR 16. O2 SAT 95% ON 2L NC. CALL LIGHT IN ROOM.
--- NOTE | 2017-02-14 07:18 | NUR ---
PATIENT UP TO BATHROOM, STATES " I FINALLY GOT SOME SLEEP THIS MORNING". GOAL FOR DAY IS CONTINUE TO IMPROVE WITH PHYSCIAL THERAPY AND GET A SHOWER." NO COMPLAINTS OF PAIN. FULL BODY ASSESMENT DONE.
--- NOTE | 2017-02-14 09:00 | NUR ---
ANGELINA AUSTIN SHOWERED PATIENT, DRESSED AND UP IN RECLINER. NO COMPLAINTS OF PAIN. PATIENT STATES " I AM FEELING GOOD TODAY". ADMINISTERED MORNING MEDICAITONS AND PATIENT NOW WAITING FOR PHYSICAL THERAPY.
--- NOTE | 2017-02-14 11:00 | NUR ---
PATIENT UP AND DOWN FROM RECLINER TO SHOWER. NO COMPLAINTS OF PAIN. COMPLAINS OF FEELING COLD, PROVIDED WARM BLANKETS. PATIENT APPEARS COMFORTABLE. CONVERSING ON PHONE. PROVIDED PATIENT WITH NEWSPAPER.
--- NOTE | 2017-02-14 17:30 | NUR ---
PATIENT BACK TO BED AFTER LUNCH, RESTED. LARGE AMOUNT FAMILY VISTED THROUGHOUT AFTERNOON. UP TO RECLINER TO EAT DINNER. APPEARS PLEASANT. OXYGEN SATURATION 94% 1L NC, LUNG SOUNDS CLEAR THORUGHOUT, DIMINISHED IN BASES.
--- NOTE | 2017-02-14 19:05 | NUR ---
SHIFT REPORT RECIEVED. PATIENT RESTING IN HER BED. EYES CLOSED. CALL LIGHT IN REACH. PULSE OX O2 SAT 94% ON 1L NC.
--- NOTE | 2017-02-14 21:34 | NUR ---
PATIENT RESTING IN BED. EVENING MEDS GIVEN PER ORDER. PATIENT ON 1L NC, O2 SAT 94%. PATIENT AAOX3. LUNG SOUNDS ARE CLEAR IN YI UPPER LOBES AND CRACKLES IN THE YI BASES. ENCOURAGE IS, ACAPELLA, AND COUGH AND DEEP BREATHE. ABD IS SOFT AND NONTENDER. BOWEL SOUNDS ACTIVE. 2+ PITTING EDEMA NOTED ON YI LOWER EXTREMITIES. PATIENT REQUESTING PRN ANXIETY MEDS. CALL LIGHT IN REACH.
--- NOTE | 2017-02-14 21:50 | NUR ---
RETURNED WITH PRN ANXIETY MEDS, PATIENT APPEARS TO BE SLEEPING. RR 16, PULSE OX 96% ON 1L NC.
--- NOTE | 2017-02-14 23:26 | NUR ---
PATIENT APPEARS TO BE SLEEPING. HOB ELEVATED TO 45 DEGREES. RR 16. PULSE OX 94% ON 1L NC. CALL LIGHT IN REACH.
--- NOTE | 2017-02-15 01:50 | NUR ---
PATIENT REQUESTED ASSISTANCE TO THE BATHROOM. GEOVANNA LOZA ASSISTED HER TO THE BATHROOM AND BATH TO BED.
--- NOTE | 2017-02-15 04:25 | NUR ---
PATIENT RESTING IN BED. PULSE OX 96% ON 1L NC. CALL LIGHT IN REACH.
--- NOTE | 2017-02-15 04:50 | NUR ---
ASSISTED PATIENT TO THE BATHROOM, SBA W/FWW. OATIENT APPEARS MORE STEADY ON HER FEET. PATIENT REPORTS SORE RIBS ON HER LEFT SIDE, STATES SHE USES A HEAT PAD AT HOME WHEN THEY BOTHER HER. HEAT PACK APPLIED TO AREA. PATIENT REQUESTED PRN ANXIETY MEDS. WHICH WERE GIVEN. RESTING IN BED. CALL LIGHT IN REACH.
--- NOTE | 2017-02-15 05:32 | NUR ---
PATIENT RESTED WELL THROUGHOUT THE SHIFT. SBA TO BATHROOM. ANXIETY MEDS GIVEN X2 PER REQUEST. LEGS ELEVATED WHEN IN BED. RIB PAIN REPORTED ON LEFT SIDE, HEAT PACK PROVIDED RELIEF. 1L NC, PULSE OX O2 SAT 92-96%.
--- NOTE | 2017-02-15 06:01 | NUR ---
PATIENT RESTING IN BED. EYES CLOSED. PULSE OX 96% ON 2L NC. CALL LIGHT IN REACH.
--- NOTE | 2017-02-15 08:22 | NUR ---
PATIENT USED BATHROOM, SHE DID NOT WANT A SHOWER, SHE IS CURRENTLY UP IN HER CHAIR AND EATING HER BREAKFAST.
--- NOTE | 2017-02-15 09:00 | NUR ---
PATIENT UP IN RECLINER THIS MORNING. LUNG SOUNDS DIMINISHED IN BASES, 1L NC. FULL BODY ASSESMENT DONE. GOAL FOR TODAY IS TO BE MORE ACTIVE, AND PARTICIPATE WITH PHYSICAL THERAPY. PATIENT APPEARS MOTIVATED TO GET STRONGER. DISCUSSED ANXIETY, PATIENT STATED " IT BREAKS MY HEART IF I HAVE TO LOOSE MY CATS THAT I HAVE HAD FOR THE LAST 10 YEARS, I AM REALLY ATTACHED TO THEM. PLUS I HAVE SOME REALLY NICE STUFF". PATIENT APPEARED LESS ANXIOUS AFTER TALKING. NOW ON PHONE TALKING TO FAMILY.
--- NOTE | 2017-02-15 09:57 | NUR ---
ELI WAS UP IN HER CHAIR SHE HAD JUST FINISHED UP HER BREAKFAST SHE ASKED FOR AN ANXIETY MED AND TYLENOL.
--- NOTE | 2017-02-15 13:00 | NUR ---
PATIENT WORKED WITH PHYSICAL THERAPY, AMBULATING IN HALLS. NO COMPLAINTS OF PAIN. VS STABLE.
--- NOTE | 2017-02-15 21:13 | NUR ---
notified dr miller of pt's bp of 94/55, no new orders. monitor.
--- NOTE | 2017-02-15 21:38 | NUR ---
PT SITTING UP IN CHAIR. ALERT AND ORIENTED X4, PLEASENT DEMEANOR. PT DENIES PAIN, BUT STATES SHE FEELS ANXIOUS. GAVE VISTERIL FOR ANXIETY. PT HAS NO FURTHER NEEDS. CALL LIGHT IN REACH.
--- NOTE | 2017-02-15 23:40 | NUR ---
pt called nurses station asking for her nurse. pt worried that she did not recieve her metoprolol tonight, it was held for sbp <100. re-assessed bp. sbp 114 and hr 94. gave metoprolol.
--- NOTE | 2017-02-16 01:15 | NUR ---
PT APPEARS TO BE SLEEPING, EYES ARE CLOSED, RR WNL AND UNLABORED. HR 77.
--- NOTE | 2017-02-16 05:13 | NUR ---
PT HAD UNEVENTFUL NIGHT. ALERT AND ORIENTED X4. STANDBY ASSIST WITH FWW, SLOW TO AMBULATE, BUT STEADY ON HER FEET. USES CALL LIGHT APPROPRIATLY. CONTINUES TO REQUIRE 1L VIA NC TO MAINTAIN ABOVE 90%. PT PLEASENT.
--- NOTE | 2017-02-16 05:58 | NUR ---
PT SITTIN AT BEDSIDE. NO FURTHER NEEDS. CALL LIGHT IN REACH.
--- NOTE | 2017-02-16 07:40 | NUR ---
REPORT RECEIVED FROM SHE. ASSUMING PATIENT CARE AT THIS TIME. PATIENT ASLEEP AT THIS TIME. RR EVEN/UNLABORED. NO APPARENT DISTRESS.
--- NOTE | 2017-02-16 09:15 | NUR ---
SPOKE WITH PATIENTS SON, ABBI. DISCUSSED PROBABLE DISCHARGE TODAY. DISCUSSED PLAN FOR HOME HEALTH AND FOLLOW UP. ALSO DISCUSSED PATIENT PROBABLY NEEDING HOME OXYGEN. HE IS IN AGREEMENT WITH PLAN. HE HAS CONTACTED HER POULTRY INSEMINATOR AT [employer] FOR A NEW EVAL FOR HOME CAREGIVER. HE STATES HE AND HIS SIBLINGS WILL BE HELPING HER AND CHECKING ON HER. PATIENT HAS A [employer] BRACE[employer] SET UP AT HOME. HE STATES SHE KEEPS TAKING IT OFF BUT THAT THEY WILL GO OVER IT WITH HER AGAIN. I ENCOURAGED FAMILY TO BE PRESENT DURING DISCHARGE INSTRUCTIONS. NO FURTHER QUESTIONS AT THIS TIME. ALSO SPOKE WITH PATIENT REGARDING ALL THE ARRANGEMENTS IN ROOM. SHE IS IN AGREEMENT WITH PLAN.
--- NOTE | 2017-02-16 09:45 | NUR ---
PATIENT UP WALKING WITH PHYSICAL THERAPIST.
[2017-02-16] MEDS ORDERED: LEVOFLOXACIN500 MG PO (11:13)
[2017-02-16] MEDS ORDERED: METOPROLOL TART25 MG PO (11:14)
[2017-02-16] MEDS ORDERED: POTASSIUM CHLO20 ME1 PO (11:15)
[2017-02-16] MEDS ORDERED: TORSEMIDE10 MG PO (11:16)
[2017-02-16] MEDS ORDERED: SENNA-TIME S T1 EACH PO (11:17)
--- NOTE | 2017-02-16 11:27 | NUR ---
Patient preparing for discharge. Today will be the last day of her antibiotic therapy with levofloxacin. Our pharmacy will dispense the last dose for her to take with her to take tonight
--- NOTE | 2017-02-16 11:45 | NUR ---
ORDER, RT QUAL[facility] AND CLINICALS FAXED TO [facility] FOR OXYGEN SET UP. FAX CONFIRMATION RECEIVED.
--- NOTE | 2017-02-16 12:15 | NUR ---
PT SITTING ON SIDE OF BED-GETTING READY TO HAVE LUNCH. HER SON ABBI WAS IN WITH HER. SHE TOLD ME THAT SHE WAS GOING HOME TODAY, BUT WAS WORRIED THAT SHE WOULD NOT HAVE THE O2 AT HOME WHEN SHE GOT THERE. I TOLD HER I WOULD PASS HER CONCERN ON. SHARED WITH HER RN TOBY. EXTENDED A BLESSING, SHE THANKED ME AND SHARED THAT SHE FELT SHE GOT GOOD CARE FROM ALL THE STAFF.
--- NOTE | 2017-02-16 12:19 | NUR ---
PATIENT SITTING AT BEDSIDE EATING LUNCH, FAMILY IN ROOM VISITING. PLAN FOR PATIENT TO BE DC TODAY.
--- NOTE | 2017-02-16 12:26 | NUR ---
ESE THE PHARMACIST IN ROOM TO EDUCATE PATIENT AND PATIENT'S FAMILY ABOUT MEDICATION.
--- NOTE | 2017-02-16 13:00 | NUR ---
PATIENT REFUSED SHOWER. DO TO DISHCHARGING SOMETIME THIS AFTERNOON.
--- NOTE | 2017-02-16 13:30 | NUR ---
SPOKE WITH [facility]. THEY WILL BE AT PATIENTS HOME AROUND 3PM FOR SET UP. STAFF UPDATED.
--- NOTE | 2017-02-16 14:39 | NUR ---
PATIENT GIVEN A WHEELCHAIR RIDE TO FRONT FOR TRANSPORT HOME WITH FAMILY.
--- NOTE | 2017-02-16 18:17 | NUR ---
ORDER/CLINICALS FAXED TO [facility] DEPT. FAX CONFIRMATION RECEIVED.
== END 2017-02-16 14:35 | disposition home or self-care (01) | DRG 947 ==
LOC: MS 11:25
PROVIDERS: ADMIT Internal Medicine
DX: R53.81 Other malaise (principal); J13 Pneumonia due to Streptococcus pneumoniae; J96.01 Acute respiratory failure with hypoxia; I50.22 Chronic systolic (congestive) heart failure; I11.0 Hypertensive heart disease with heart failure; K21.9 Gastro-esophageal reflux disease without esophagitis; F41.9 Anxiety disorder, unspecified
CPT/HCPCS: 94668; 94760; 94761; 94762; 97110; 97116; 97162; 97166; 97530; 97535; J1650; Q0177

== ENCOUNTER 2020-03-19 14:15 | Emergency (ER) | payer MEDICARE, OTHER ==
[~2020-03-19] VITALS: Ht 147.3 cm; Wt 62.1 kg
[~2020-03-19 14:15] MED LIST changes: +LEVOFLOXACIN500 MG PO; +METOPROLOL TART25 MG PO; +POTASSIUM CHLO20 ME1 PO; +SENNA-TIME S T1 EACH PO; +TORSEMIDE10 MG PO
[2020-03-19] MEDS ORDERED: TORSEMIDE20 MG PO (15:14)
[2020-03-19] MEDS ORDERED: METOPROLOL SUCC50 MG PO (15:14)
[2020-03-19] MEDS ORDERED: PRAVASTATIN SOD20 MG PO (15:14)
--- NOTE | 2020-03-19 21:35 | EKG ---
[facility] [address] [facility] [place] [address] Signed Sinus rhythm with complete heart block and Idioventricular rhythm Nonspecific intraventricular block Possible Lateral infarct , age undetermined T wave abnormality, consider inferior ischemia Abnormal ECG Confirmed by FREDDIE MORENO MD ([id number] on 03/19/2020 9:34:56 PM Electronically Signed By: FREDDIE MORENO MD 03/19/20 2135 PATIENT NAME: MERISSA VARELA Electrocardiogram DATE OF : 31 PHYSICIAN: FREDDIE MORENO MD REPORT #: [id number] REPORT IS CONFIDENTIAL AND NOT TO BE RELEASED WITHOUT AUTHORIZATION
== END 2020-03-19 17:55 | disposition short-term general hospital (02) ==
LOC: ED 14:15
DX: I44.2 Atrioventricular block, complete (principal); I25.2 Old myocardial infarction; E78.00 Pure hypercholesterolemia, unspecified; E11.9 Type 2 diabetes mellitus without complications; Z87.891 Personal history of nicotine dependence; Z79.899 Other long term (current) drug therapy; Z88.5 Allergy status to narcotic agent; Z79.84 Long term (current) use of oral hypoglycemic drugs; Z79.82 Long term (current) use of aspirin; Z20.828 Contact with and (suspected) exposure to other viral communicable diseases
CPT/HCPCS: 71045; 80053; 83735; 84484; 85025; 93005; 93010; 99285-25; C9803; U0003

== ENCOUNTER 2020-08-27 15:46 | Emergency (ER) | payer MEDICARE, OTHER ==
[~2020-08-27] VITALS: Ht 147.3 cm; Wt 56.7 kg
[~2020-08-27 15:46] MED LIST changes: +PRAVASTATIN SOD20 MG PO
[2020-08-27] MEDS ORDERED: HYDROCODON-ACE1 EA10 PO (18:14)
== END 2020-08-27 19:06 | disposition home or self-care (01) ==
LOC: ED 15:46
DX: K80.50 Calculus of bile duct without cholangitis or cholecystitis without obstruction (principal); I25.2 Old myocardial infarction; E78.00 Pure hypercholesterolemia, unspecified; E11.9 Type 2 diabetes mellitus without complications; Z87.891 Personal history of nicotine dependence; Z88.5 Allergy status to narcotic agent; Z79.899 Other long term (current) drug therapy; Z79.84 Long term (current) use of oral hypoglycemic drugs; Z79.82 Long term (current) use of aspirin
CPT/HCPCS: 74177; 80053; 83605; 83690; 85025; 99284-25

== ENCOUNTER 2021-10-06 21:06 | Emergency (ER) | payer MEDICARE, OTHER ==
[~2021-10-06] VITALS: Ht 147.3 cm; Wt 61.7 kg
[~2021-10-06 21:06] MED LIST changes: +HYDROCODON-ACE1 EA10 PO
[2021-10-07] MEDS ORDERED: CARVEDILOL12.5 MG PO (02:32)
--- NOTE | 2021-10-08 12:55 | EKG ---
[facility] [address] [facility] [place] [address] Signed Atrial-paced rhythm with prolonged AV conduction Left bundle branch block Abnormal ECG No previous ECGs available Confirmed by CHELSEA GARAY MD ([id number] on 10/08/2021 12:55:23 PM Electronically Signed By: CHELSEA GARAY MD 10/08/21 1255 PATIENT NAME: AVERYMERISSA FLOWER Electrocardiogram DATE OF : 31 PHYSICIAN: CHELSEA GARAY MD REPORT #: [id number] REPORT IS CONFIDENTIAL AND NOT TO BE RELEASED WITHOUT AUTHORIZATION
== END 2021-10-07 03:45 | disposition short-term general hospital (02) ==
LOC: ED 21:06
DX: K80.50 Calculus of bile duct without cholangitis or cholecystitis without obstruction (principal); K85.10 Biliary acute pancreatitis without necrosis or infection; E11.9 Type 2 diabetes mellitus without complications; I52 Other heart disorders in diseases classified elsewhere; Z95.0 Presence of cardiac pacemaker; Z87.891 Personal history of nicotine dependence; Z88.2 Allergy status to sulfonamides; Z88.5 Allergy status to narcotic agent; Z79.899 Other long term (current) drug therapy; Z20.822 Contact with and (suspected) exposure to COVID-19
CPT/HCPCS: 36415; 71045; 74177; 76705; 80053; 83690; 83735; 84484; 85025; 87502; 93005; 93010; 96375; 96376; 99285-25; C9803; J0694; J2405; J3010; U0003